=== PATIENT | female | born 1970 | race Caucasian/White ===

== ENCOUNTER 2017-12-08 10:21 | Emergency (ER) | payer OTHER ==
[2017-12-08] MEDS ORDERED: NA CHLORIDE 0.9% 1,000 ML ONE (10:49)
[2017-12-08] MEDS ORDERED: PROMETHAZINE 25 MG/ML VIAL ONE (10:49)
[2017-12-08] MEDS ORDERED: MEPERIDINE HCL 25 MG/0.5 ML ONE (10:49)
[2017-12-08 11:14] LABS: Absolute Lymphocytes (CBC) 2.2 K/uL (0.7-4.9); Absolute Monocytes 0.9 K/uL (0.1-1.3); Absolute Neutrophil 8.2 K/uL (1.8-8.0); Basophils % 0.5 % (0-1.3); Hematocrit 45.3 % (36.0-45.0); MCH 30.9 pg (27.0-35.0); MCV 93.9 fL (80-100); Monocytes % 7.7 % (3.3-12.3); RBC Red Blood Cell Count 4.82 M/uL (3.86-4.86)
[2017-12-08 11:40] LABS: Potassium 3.7 mEq/L (3.6-5.0)
[2017-12-08 11:46] LABS: Albumin 4.8 g/dL (3.2-5.5); Bilirubin Direct 0.4 mg/dL (0-0.2); Bilirubin Total 2.3 mg/dL (0.3-1.2); Protein, Total 8.9 g/dL (6.0-8.3)
--- NOTE | 2017-12-08 13:25 | RAD REPORT ---
EXAM DESCRIPTION: US - Abdomen Exam Limited - 12/08/2017 1:01 pm CLINICAL HISTORY: Abdominal pain, right upper quadrant pain Preliminary findings provided at the time of the study. COMPARISON: Ultrasound May 2014 FINDINGS: Multiple gallstones are present in a partially filled gallbladder. Largest stone is 2.5 cm . No pericholecystic fluid identifiable. Gallbladder wall is normal range. Sonographic Low sign wa s negative ; however, the patient apparently received pain medication. No common duct stone or biliary tree dilatation identified. IMPRESSION: Multi stone cholelithiasis without gallbladder wall thickening or pericholecystic fluid. No biliary tree dilatation.
--- NOTE | 2017-12-08 13:53 | ER ---
Nurse's Notes [facility] Name: Vivek Yo Age: 47 yrs Sex: Female : 1970 Arrival Date: 12/08/2017 Time: 10:24 Bed 16 Private MD: Venu Resendez B Diagnosis: Cholelithiasis Presentation: 12/08 10:32 Presenting complaint: Patient states: " I started having stomach pain around 10:30 last ph night and now it's moved to my chest." Pt reports pain/pressure in upper abdomen and sternal area, denies N/V or SOB. Transition of care: patient was not received from another setting of care. Onset of symptoms was December 08, 2017. Risk Assessment: Do you want to hurt yourself or someone else? Patient reports no desire to harm self or others. Initial Sepsis Screen: Does the patient meet any 2 criteria? No. Patient's initial sepsis screen is negative. Does the patient have a suspected source of infection? No. Patient's initial sepsis screen is negative. Care prior to arrival: None. 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 - Social history:: Smoking status: Patient/guardian denies using tobacco. - Ebola Screening: : No symptoms or risks identified at this time. Screenin:28 Abuse screen: Denies threats or abuse. Denies injuries from another. Nutritional aj screening: No deficits noted. Tuberculosis screening: No symptoms or risk factors identified. Fall Risk None identified. Assessment: 10:41 General: Appears in no apparent distress. uncomfortable, Behavior is calm, cooperative. aj Pain: Complains of pain in epigastric area and right upper quadrant. Neuro: Level of Consciousness is awake, alert, obeys commands, Oriented to person, place, time, situation, Appropriate for age. Cardiovascular: Capillary refill < 3 seconds in bilateral fingers. Respiratory: Airway is patent Respiratory effort is even, unlabored, Respiratory pattern is regular, symmetrical. GI: Abdomen is flat, non-distended, Bowel sounds present X 4 quads. Abd is soft and non tender. Derm: Skin is intact, is healthy with good turgor, Skin is pink, warm \\T\\ dry. normal. 14:28 Reassessment: Patient appears in no apparent distress at this time. No changes from aj previously documented assessment. Patient and/or family updated on plan of care and expected duration. Pain level reassessed. Patient is alert, oriented x 3, equal unlabored respirations, skin warm/dry/pink. Patient denies pain at this time. Patient states feeling better. Patient states symptoms have improved. Vital Signs: 10:34 BP 136 / 86; Pulse 59; Resp 20; Temp 97.7; Pulse Ox 98% on R/A; Weight 58.97 kg; Height ph 5 ft. 6 in. (167.64 cm); Pain 6/10; 12:03 BP 114 / 67; Pulse 52; Resp 16; Pulse Ox 99% on R/A; aj 13:01 BP 108 / 60; Pulse 50; Resp 18; Pulse Ox 99% on R/A; dh3 14:28 BP 105 / 71; Pulse 54; Resp 16; Pulse Ox 99% on R/A; aj 10:34 Body Mass Index 20.98 (58.97 kg, 167.64 cm) ph ED Course: 10:24 Patient arrived in ED. rg4 10:25 Venu Resendez MD is Private Physician. rg4 10:27 [facility] jr8 10:27 Remy Watson MD is Attending Physician. jr8 10:31 Kathryn Teresa, LOR is Primary Nurse. aj 10:34 Triage completed. ph 10:35 Arm band placed on Patient placed in an exam room, on a stretcher. ph 10:43 Inserted saline lock: 22 gauge in left antecubital area, using aseptic technique. aj Missed attempt(s): 20 gauge in left antecubital area. Bleeding controlled, band aid applied, catheter tip intact. 13:00 US Abdomen Limited In Process Unspecified. EDMS 13:03 Ultrasound completed. Note: done portable/bedside. lc3 13:52 Donn Vázquez MD is Referral Physician. jr8 14:28 Patient has correct armband on for positive identification. aj 14:28 No provider procedures requiring assistance completed. IV discontinued, intact, aj bleeding controlled, No redness/swelling at site. Pressure dressing applied. Administered Medications: 11:00 Drug: NS 0.9% 1000 ml Route: IV; Rate: 1000 ml; Site: left antecubital; aj 14:32 Follow up: Response: Pain is decreased; IV Status: Completed infusion; IV Intake: 1000mlaj 11:00 Drug: Phenergan 12.5 mg Route: IVP; Site: left antecubital; aj 14:31 Follow up: Response: Pain is decreased aj 11:00 Drug: Demerol 25 mg Route: IVP; Site: left antecubital; aj 14:31 Follow up: Response: Pain is decreased aj Intake: 14:32 IV: 1000ml; Total: 1000ml. aj Outcome: 13:53 Discharge ordered by MD. swann 14:28 Discharged to home ambulatory, with family. aj 14:28 Condition: good 14:28 Discharge instructions given to patient, family, Instructed on discharge instructions, follow up and referral plans. medication usage, Demonstrated understanding of instructions, follow-up care, medications, Prescriptions given X 1. 14:33 Patient left the ED. aj Signatures: Dispatcher [employer] EDKathryn Rosales RN RN aj Roszak, Josh, PA PA jr8 Hall, Patricia, RN RN Zaina, Marie White 4 Linda Flores 3
--- NOTE | 2017-12-08 13:54 | EDPHYS ---
Physician Documentation [facility] Name: Vivek Yo Age: 47 yrs Sex: Female : 1970 Arrival Date: 12/08/2017 Time: 10:24 Bed 16 Private MD: Venu Resendez B ED Physician Remy Watson HPI: 12/08 11:19 This 47 yrs old Female presents to ER via Wheelchair with complaints of jr8 Abdominal Pain, Chest Pain. 11:19 The patient presents with abdominal pain in the epigastric area. Onset: The jr8 symptoms/episode began/occurred acutely, last night. The symptoms do not radiate. Associated signs and symptoms: Pertinent positives: nausea. The symptoms are described as sharp. Modifying factors: The symptoms are alleviated by nothing, the symptoms are aggravated by food. Severity of pain: At its worst the pain was moderate in the emergency department the pain is unchanged. The patient has experienced similar episodes in the past, a few times. The patient has not recently seen a physician. Patient with history of cholelithiasis. Stated that she will have occasional flare up but usually goes away shortly after. Stated that she had spicy shrimp last night. Pain started last night and has not gone away which is unusual for her. 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 - Social history:: Smoking status: Patient/guardian denies using tobacco. - Ebola Screening: : No symptoms or risks identified at this time. ROS: 11:19 Eyes: Negative for injury, pain, redness, and discharge, ENT: Negative for injury, jr8 pain, and discharge, Neck: Negative for injury, pain, and swelling, Cardiovascular: Negative for chest pain, palpitations, and edema, Respiratory: Negative for shortness of breath, cough, wheezing, and pleuritic chest pain, Back: Negative for injury and pain, MS/Extremity: Negative for injury and deformity, Skin: Negative for injury, rash, and discoloration, Neuro: Negative for headache, weakness, numbness, tingling, and seizure. 11:19 Abdomen/GI: Positive for abdominal pain, nausea, Negative for diarrhea, constipation, abdominal cramps, abdominal distension, anorexia, dysphagia, hematemesis, black/tarry stool, rectal pain, rectal bleeding, bowel incontinence, flatulence. Exam: 11:19 Cardiovascular: Regular rate and rhythm with a normal S1 and S2. No gallops, murmurs, jr8 or rubs. Normal PMI, no JVD. No pulse deficits. Respiratory: Lungs have equal breath sounds bilaterally, clear to auscultation and percussion. No rales, rhonchi or wheezes noted. No increased work of breathing, no retractions or nasal flaring. Back: No spinal tenderness. No costovertebral tenderness. Full range of motion. Skin: Warm, dry with normal turgor. Normal color with no rashes, no lesions, and no evidence of cellulitis. MS/ Extremity: Pulses equal, no cyanosis. Neurovascular intact. Full, normal range of motion. Neuro: Awake and alert, GCS 15, oriented to person, place, time, and situation. Cranial nerves II-XII grossly intact. Motor strength 5/5 in all extremities. Sensory grossly intact. Cerebellar exam normal. Normal gait. 11:19 Abdomen/GI: Inspection: abdomen appears normal, Bowel sounds: active, all quadrants, Palpation: soft, in all quadrants, mild abdominal tenderness, in the epigastric area and right upper quadrant, mass, is not appreciated, rebound tenderness, is not appreciated, voluntary guarding, is not appreciated, involuntary guarding, is not appreciated, no appreciated organomegaly, Indicators: McBurney's point is not tender, Low's sign is negative, Rovsing's sign is negative, Liver: no appreciated palpable abnormalities, tenderness, is not appreciated. Vital Signs: 10:34 BP 136 / 86; Pulse 59; Resp 20; Temp 97.7; Pulse Ox 98% on R/A; Weight 58.97 kg; Height ph 5 ft. 6 in. (167.64 cm); Pain 6/10; 12:03 BP 114 / 67; Pulse 52; Resp 16; Pulse Ox 99% on R/A; aj 13:01 BP 108 / 60; Pulse 50; Resp 18; Pulse Ox 99% on R/A; dh3 14:28 BP 105 / 71; Pulse 54; Resp 16; Pulse Ox 99% on R/A; aj 10:34 Body Mass Index 20.98 (58.97 kg, 167.64 cm) ph MDM: 10:27 Patient medically screened. jr8 13:49 Differential diagnosis: cholecystitis, Cholelithiasis, gastritis, gastroesophageal jr8 reflux disease, Hepatitis, non-specific abd pain, pancreatitis, Peptic Ulcer Disease. Data reviewed: vital signs, nurses notes, lab test result(s), radiologic studies, ultrasound, and as a result, I will discharge patient. Data interpreted: Pulse oximetry: on room air is 99 %. Interpretation: normal. Counseling: I had a detailed discussion with the patient and/or guardian regarding: the historical points, exam findings, and any diagnostic results supporting the discharge/admit diagnosis, lab results, radiology results, the need for outpatient follow up, a general surgeon, to return to the emergency department if symptoms worsen or persist or if there are any questions or concerns that arise at home. Response to treatment: the patient's symptoms have resolved after treatment. ED course: No ductal or biliary tree dilation on US. No fluid or inflammation noted to GBW. Patient stated that she has chronically elevated LFT's. Pain free. No fever. Will send home to f/u with GS. Recommended that she has it taken out . 12/08 10:57 Order name: Basic Metabolic Panel; Complete Time: 12:24 12/08 10:57 Order name: CBC with Diff; Complete Time: 11:22 12/08 10:57 Order name: Creatinine for Radiology; Complete Time: 12:24 12/08 10:57 Order name: Hepatic Function; Complete Time: 12:24 12/08 10:57 Order name: Lipase; Complete Time: 12:24 12/08 10:57 Order name: Troponin (emerg Dept Use Only); Complete Time: 12:24 12/08 10:57 Order name: IV Saline Lock; Complete Time: 11:16 12/08 10:57 Order name: Labs collected and sent; Complete Time: 11:12/08 10:57 Order name: EKG; Complete Time: 10:57 12/08 12:03 Order name: US Abdomen Limited; Complete Time: 13:30 12/08 10:57 Order name: EKG - Nurse/Tech; Complete Time: 11:16 jr8 Administered Medications: 11:00 Drug: NS 0.9% 1000 ml Route: IV; Rate: 1000 ml; Site: left antecubital; aj 14:32 Follow up: Response: Pain is decreased; IV Status: Completed infusion; IV Intake: 1000mlaj 11:00 Drug: Phenergan 12.5 mg Route: IVP; Site: left antecubital; aj 14:31 Follow up: Response: Pain is decreased aj 11:00 Drug: Demerol 25 mg Route: IVP; Site: left antecubital; aj 14:31 Follow up: Response: Pain is decreased aj Disposition: 18:42 Co-signature as Attending Physician, Remy Watson MD I agree with the assessment and kdr plan of care. Disposition: 12/08/17 13:53 Discharged to Home. Impression: Cholelithiasis. - Condition is Stable. - Discharge Instructions: Cholelithiasis. - Prescriptions for omeprazole 20 mg Oral capsule,delayed release(DR/EC) - take 1 capsule by ORAL route once daily; 30 capsule. - Medication Reconciliation Form, Thank You Letter, Antibiotic Education, Prescription Opioid Use form. - Follow up: Donn Vázquez MD; When: 2 - 3 days; Reason: Recheck today's complaints, Continuance of care, Re-evaluation by your physician. - Problem is new. - Symptoms have improved. Signatures: Dispatcher [employer] EDKathryn Rosales RN RN aj Rittger, Kevin, MD MD [facility] Lauro Watts PA PA jr8 Margot Boogie RN RN ph Corrections: (The following items were deleted from the chart) 14:33 13:53 12/08/2017 13:53 Discharged to Home. Impression: Cholelithiasis. Condition is aj Stable. Forms are Medication Reconciliation Form, Thank You Letter, Antibiotic Education, Prescription Opioid Use. Follow up: Donn Vázquez; When: 2 - 3 days; Reason: Recheck today's complaints, Continuance of care, Re-evaluation by your physician. Problem is new. Symptoms have improved. jr8
--- NOTE | 2017-12-09 07:58 | EKG ---
Test Date: 2017-12-08 Test Time: 11:08:19 [place] [place] Worker: HUMPHREY MEASUREMENT RESULTS: Intervals: Rate: 53 NJ: 138 QRSD: 82 QT: 440 QTc: 412 [place]: P: 70 NJ: 138 QRS: 73 T: 58 INTERPRETIVE STATEMENTS: Sinus bradycardia Otherwise normal ECG No previous ECG available for comparison Electronically Signed On 12-09-17 07:55:11 CDT by Abhay Rodríguez
== END 2017-12-08 14:33 | disposition home or self-care (01) ==
LOC: ER 10:21
DX: K80.20 Calculus of gallbladder without cholecystitis without obstruction (principal); E03.9 Hypothyroidism, unspecified
CPT/HCPCS: 36415; 76705; 80048; 80076; 83690; 84484; 85025; 93005; 96361; 96374; 96375; 99284; J2175; J2550; J7030

== ENCOUNTER 2017-12-08 18:08 | Inpatient (IN) | payer OTHER ==
--- NOTE | 2017-12-08 19:21 | RAD REPORT ---
EXAM DESCRIPTION: CT - Abdomen Pelvis W Contrast - 12/08/2017 6:58 pm CLINICAL HISTORY: Abdominal pain/epigastric pain. COMPARISON: December 08, 2017 ultrasound TECHNIQUE: Computed axial tomography of the abdomen pelvis was obtained. 100 cc Isovue-300 was admin istered intravenously. Oral contrast was not requested which limits evaluation of bowel. All CT scans are performed using dose optimization technique as appropriate and may include automated exposure control or mA/KV adjustment according to patient size. FINDINGS: The liver, spleen, pancreas, adrenal and kidneys appear unremarkable. There is no evidence of diverticulitis. A 28 millimeter right ovarian cyst is present. A 25 millimeter left ovarian cyst is seen. No signific ant free fluid is noted. An intrauterine device is in place. Gallstones are present. Gallbladder wall is upper limits normal thickness. The gallbladder is distend ed IMPRESSION: Cholelithiasis with gallbladder distention. 28 millimeter right and 25 millimeter left ovarian cysts without significant free fluid
--- NOTE | 2017-12-08 20:31 | EDPHYS ---
Physician Documentation [facility] Name: Vivek Yo Age: 47 yrs Sex: Female : 1970 Arrival Date: 12/08/2017 Time: 18:09 Bed 28 Private MD: Venu Resendez B ED Physician Remy Watson HPI: 12/08 19:43 This 47 yrs old Female presents to ER via Ambulatory with complaints of jr8 Abdominal Pain, Back Pain. 19:43 Patient seen earlier for suspected gallbladder pain. Came back after pain started up jr8 again. Having pain to epigastric and right upper quadrant again. Now with radiation to back . 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 - Social history:: Smoking status: Patient/guardian denies using tobacco. - Ebola Screening: : No symptoms or risks identified at this time. ROS: 19:43 Eyes: Negative for injury, pain, redness, and discharge, ENT: Negative for injury, jr8 pain, and discharge, Neck: Negative for injury, pain, and swelling, Cardiovascular: Negative for chest pain, palpitations, and edema, Respiratory: Negative for shortness of breath, cough, wheezing, and pleuritic chest pain, Back: Negative for injury and pain, MS/Extremity: Negative for injury and deformity, Skin: Negative for injury, rash, and discoloration, Neuro: Negative for headache, weakness, numbness, tingling, and seizure. 19:43 Abdomen/GI: Positive for abdominal pain, Negative for nausea, vomiting, and diarrhea, abdominal distension, anorexia, dysphagia, hematemesis, black/tarry stool, rectal pain, rectal bleeding, bowel incontinence, flatulence. Exam: 19:43 Cardiovascular: Regular rate and rhythm with a normal S1 and S2. No gallops, murmurs, jr8 or rubs. Normal PMI, no JVD. No pulse deficits. Respiratory: Lungs have equal breath sounds bilaterally, clear to auscultation and percussion. No rales, rhonchi or wheezes noted. No increased work of breathing, no retractions or nasal flaring. Back: No spinal tenderness. No costovertebral tenderness. Full range of motion. Skin: Warm, dry with normal turgor. Normal color with no rashes, no lesions, and no evidence of cellulitis. MS/ Extremity: Pulses equal, no cyanosis. Neurovascular intact. Full, normal range of motion. Neuro: Awake and alert, GCS 15, oriented to person, place, time, and situation. Cranial nerves II-XII grossly intact. Motor strength 5/5 in all extremities. Sensory grossly intact. Cerebellar exam normal. Normal gait. 19:43 Abdomen/GI: Inspection: abdomen appears normal, Bowel sounds: active, all quadrants, Palpation: soft, in all quadrants, mild abdominal tenderness, in the epigastric area and right upper quadrant, mass, is not appreciated, rebound tenderness, is not appreciated, voluntary guarding, is not appreciated, involuntary guarding, is not appreciated, no appreciated organomegaly, Indicators: McBurney's point is not tender, Low's sign is negative, Rovsing's sign is negative, Liver: no appreciated palpable abnormalities, tenderness, is not appreciated. Vital Signs: 18:35 BP 119 / 89; Pulse 59; Resp 16; Temp 98.2; Pulse Ox 100% on R/A; Weight 58.97 kg; ph Height 5 ft. 6 in. (167.64 cm); Pain 3/10; 19:09 BP 99 / 64; Pulse 60; Resp 16 S; Pulse Ox 98% on R/A; Pain 0/10; jd3 20:14 BP 112 / 68; Pulse 61; Resp 17 S; Pulse Ox 100% on R/A; Pain 0/10; jd3 21:24 BP 114 / 79; Pulse 61; Resp 17 S; Pulse Ox 97% on R/A; Pain 4/10; jd3 18:35 Body Mass Index 20.98 (58.97 kg, 167.64 cm) ph MDM: 18:37 Patient medically screened. jr8 20:29 Data reviewed: vital signs, nurses notes, lab test result(s), radiologic studies, CT jr8 scan, ultrasound, and as a result, I will admit patient. Data interpreted: Pulse oximetry: on room air is 100 %. Interpretation: normal. Counseling: I had a detailed discussion with the patient and/or guardian regarding: the historical points, exam findings, and any diagnostic results supporting the discharge/admit diagnosis, lab results, radiology results, the need for further work-up and treatment in the hospital. ED course: Dr. Spivey assessed patient and talked to Dr. Loza. Will put on his service and do surgery tomorrow . 12/08 18:38 Order name: CT Abd/Pelvis - W/Contrast; Complete Time: 19:22 jr8 12/08 18:38 Order name: IV; Complete Time: 18:45 jr8 Administered Medications: 21:09 Drug: Demerol 25 mg Route: IVP; Site: right antecubital; jd3 21:25 Follow up: Response: No adverse reaction; Pain is decreased jd3 21:09 Drug: Phenergan 12.5 mg Route: IVP; Site: right antecubital; jd3 21:25 Follow up: Response: Nausea is decreased jd3 21:09 Drug: Mefoxin 1 grams Route: IVPB; Infused Over: 30 mins; Site: right antecubital; jd3 21:26 Follow up: Response: No adverse reaction; IV Status: Completed infusion jd3 21:10 Drug: Flagyl 500 mg Volume: 100 ml; Route: IVPB; Rate: 200 ml/hr; Infused Over: 30 jd3 mins; Site: right antecubital; 21:40 Follow up: IV Status: Completed infusion iw Disposition: 12/08/17 20:30 Hospitalization ordered by Alvin Loza for Inpatient Admission. Preliminary diagnosis are Cholelithiasis, Intractable abdominal pain . - Bed requested for Telemetry/MedSurg (Inpatient). - Status is Inpatient Admission. tl3 - Condition is Stable. - Problem is new. - Symptoms have improved. UTI on Admission? No Addendum: 12/13/2017 15:26 Co-signature as Attending Physician, Remy Watson MD I agree with the assessment and k dr plan of care. Signatures: Dispatcher [employer] EDMI Sara Sheehan RN RN mw Rittger, Kevin, MD MD [facility] Lauro Watts PA PA jr8 Margot Boogie RN RN Henry Fowler RN RN j Soraya Guerra RN RN tl3 Jacqui Armstrong RN iw Corrections: (The following items were deleted from the chart) 12/08 20:56 20:30 Hospitalization Ordered by Alvin Loza MD for Inpatient Admission. Preliminary mw diagnosis is Cholelithiasis; Intractable abdominal pain . Bed requested for Telemetry/MedSurg (Inpatient). Status is Inpatient Admission. Condition is Stable. Problem is new. Symptoms have improved. UTI on Admission? No. jr8 21:55 20:56 12/08/2017 20:30 Hospitalization Ordered by Alvin Loza MD for Inpatient tl3 Admission. Preliminary diagnosis is Cholelithiasis; Intractable abdominal pain . Bed requested for Telemetry/MedSurg (Inpatient). Status is Inpatient Admission. Condition is Stable. Problem is new. Symptoms have improved. UTI on Admission? No. mw
--- NOTE | 2017-12-08 20:31 | ER ---
Nurse's Notes [facility] Name: Vivek Yo Age: 47 yrs Sex: Female : 1970 Arrival Date: 12/08/2017 Time: 18:09 Bed 28 Private MD: Venu Resendez B Diagnosis: Cholelithiasis;Intractable abdominal pain Presentation: 12/08 18:33 Presenting complaint: Patient states: " I was here earlier and dx w/ gallbladder ph problems. I went home and went to sleep and when I woke up it was really hurting again." Pt reports epigastric pain that radiates to LUQ, denies N/V/D. Transition of care: patient was not received from another setting of care. Onset of symptoms was December 08, 2017. Risk Assessment: Do you want to hurt yourself or someone else? Patient reports no desire to harm self or others. Initial Sepsis Screen: Does the patient meet any 2 criteria? No. Patient's initial sepsis screen is negative. Does the patient have a suspected source of infection? No. Patient's initial sepsis screen is negative. Care prior to arrival: None. 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 - Social history:: Smoking status: Patient/guardian denies using tobacco. - Ebola Screening: : No symptoms or risks identified at this time. Screenin:46 Abuse screen: Denies threats or abuse. Denies injuries from another. Nutritional iw screening: No deficits noted. Tuberculosis screening: No symptoms or risk factors identified. Fall Risk IV access (20 points). Assessment: 18:45 General: Appears in no apparent distress. Behavior is calm, cooperative. Pain: iw Complains of pain in epigastric area, right upper quadrant and left upper quadrant Pain currently is 0 out of 10 on a pain scale. at worst was 5 out of 10 on a pain scale. Neuro: Level of Consciousness is awake, alert, obeys commands, Oriented to person, place, time, situation, Moves all extremities. Full function. Cardiovascular: Patient's skin is warm and dry. Respiratory: Respiratory pattern is regular, symmetrical. GI: Bowel sounds present X 4 quads. Abd is soft X 4 quads Abdomen is tender to palpation in epigastric area Reports upper abdominal pain. : No signs and/or symptoms were reported regarding the genitourinary system. Derm: Skin is pink, warm \\T\\ dry. normal. Musculoskeletal: Range of motion: intact in all extremities. 19:07 Reassessment: Patient appears in no apparent distress at this time. No changes from jd3 previously documented assessment. Patient and/or family updated on plan of care and expected duration. Pain level reassessed. Patient is alert, oriented x 3, equal unlabored respirations, skin warm/dry/pink. Patient denies pain at this time. General: Appears in no apparent distress. Behavior is calm, cooperative. Pain: Denies pain. Neuro: Level of Consciousness is awake, alert, obeys commands, Oriented to person, place, time, situation, Moves all extremities. Full function. GI: Abdomen is flat, Patient currently denies abdominal pain. 20:15 Reassessment: Patient appears in no apparent distress at this time. No changes from jd3 previously documented assessment. Patient and/or family updated on plan of care and expected duration. Pain level reassessed. Patient is alert, oriented x 3, equal unlabored respirations, skin warm/dry/pink. 21:24 Reassessment: Patient appears in no apparent distress at this time. Patient and/or [facility] family updated on plan of care and expected duration. Pain level reassessed. Patient is alert, oriented x 3, equal unlabored respirations, skin warm/dry/pink. awaiting admission orders for admission. Vital Signs: 18:35 BP 119 / 89; Pulse 59; Resp 16; Temp 98.2; Pulse Ox 100% on R/A; Weight 58.97 kg; ph Height 5 ft. 6 in. (167.64 cm); Pain 3/10; 19:09 BP 99 / 64; Pulse 60; Resp 16 S; Pulse Ox 98% on R/A; Pain 0/10; jd3 20:14 BP 112 / 68; Pulse 61; Resp 17 S; Pulse Ox 100% on R/A; Pain 0/10; jd3 21:24 BP 114 / 79; Pulse 61; Resp 17 S; Pulse Ox 97% on R/A; Pain 4/10; jd3 18:35 Body Mass Index 20.98 (58.97 kg, 167.64 cm) ph ED Course: 18:09 Patient arrived in ED. mr 18:09 Venu Resendez MD is Private Physician. mr 18:35 Triage completed. ph 18:36 Arm band placed on. ph 18:37 Lauro Watts PA is PHCP. jr8 18:37 Remy Watson MD is Attending Physician. jr8 18:39 Jacqui Armstrong, RN is Primary Nurse. iw 18:[address] via wheelchair. vm2 18:44 Inserted saline lock: 20 gauge in right antecubital area, using aseptic technique. iw 18:53 CT completed. Patient tolerated procedure well. Patient moved back from CT. mw3 18:58 CT Abd/Pelvis - W/Contrast In Process Unspecified. EDMS 19:07 Primary Nurse role handed off by Jacqui Armstrong, LOR jd3 19:07 Henry Fowler RN is Primary Nurse. jd3 19:09 Patient has correct armband on for positive identification. Bed in low position. Call j light in reach. Side rails up X 1. Adult w/ patient. 20:30 Alvin Loza MD is Hospitalizing Provider. jr8 21:24 No provider procedures requiring assistance completed. Patient admitted, IV remains in jd3 place. Administered Medications: 21:09 Drug: Demerol 25 mg Route: IVP; Site: right antecubital; jd3 21:25 Follow up: Response: No adverse reaction; Pain is decreased jd3 21:09 Drug: Phenergan 12.5 mg Route: IVP; Site: right antecubital; jd3 21:25 Follow up: Response: Nausea is decreased jd3 21:09 Drug: Mefoxin 1 grams Route: IVPB; Infused Over: 30 mins; Site: right antecubital; jd3 21:26 Follow up: Response: No adverse reaction; IV Status: Completed infusion jd3 21:10 Drug: Flagyl 500 mg Volume: 100 ml; Route: IVPB; Rate: 200 ml/hr; Infused Over: 30 jd3 mins; Site: right antecubital; 21:40 Follow up: IV Status: Completed infusion iw Outcome: 20:30 Decision to Hospitalize by Provider. jrCésar 21:54 Admitted to Tele accompanied by tech, via stretcher, with chart, Report called to [email or web address] LOR Judd 21:54 Condition: stable 21:54 Instructed on the need for admit. 21:55 Patient left the ED. tl3 Signatures: Dispatcher [employer] EDDelia Arnold Irene, RN RN Lauro Watts PA PA jr8 Margot Boogie RN RN Mica Keen [facility] Henry Fowler RN RN jSoraya Walter RN RN tl3 Diamond Ramirez 3
[2017-12-08] MEDS ORDERED: CEFOXITIN/SWI 1gm 1 GM/10 ML SYR ONE (20:55)
[2017-12-08] MEDS ORDERED: MEPERIDINE HCL 25 MG/0.5 ML ONE (20:55)
[2017-12-08] MEDS ORDERED: PROMETHAZINE 25 MG/ML VIAL ONE (20:55)
[2017-12-08] MEDS ORDERED: METRONIDAZOLE 500mg IVPB 500 MG/100 ML BAG IV ONE (20:56)
[2017-12-08] MEDS ORDERED: MEPERIDINE HCL 25 MG/0.5 ML IV PRN (22:05)
[2017-12-08] MEDS ORDERED: ACETAMINOPHEN 500 MG TAB PO PRN (22:05)
[2017-12-08] MEDS ORDERED: ONDANSETRON 4 MG/2 ML VIAL IV PRN (22:05)
[2017-12-08] MEDS ORDERED: NA CHLORIDE 0.9% 1,000 ML ONE (22:11)
[2017-12-08] MEDS: NA CHLORIDE 0.9% 1,000 ML IV SCH (22:18)
[2017-12-09] MEDS ORDERED: CEFOXITIN SODIUM 1 GM/VIAL IVPB SCH (03:00)
[2017-12-09] MEDS: METRONIDAZOLE 500mg IVPB 500 MG/100 ML BAG IV SCH ×2 (03:07→05:38)
[2017-12-09] MEDS ORDERED: CEFOXITIN/NS 1gm 1 GM/50 ML BAG IV SCH (03:17)
[2017-12-09] MEDS ORDERED: CEFOXITIN SODIUM 2 GM/VIAL ONE (04:15)
[2017-12-09] MEDS ORDERED: NA CHLORIDE 0.9% 100 ML ONE (04:18)
[2017-12-09 05:59] LABS: Absolute Lymphocytes (CBC) 0.8 K/uL (0.7-4.9); Absolute Monocytes 0.6 K/uL (0.1-1.3); Absolute Neutrophil 7.1 K/uL (1.8-8.0); Basophils % 2.7 % (0-1.3); Eosinophils % 2.5 % (0-4.4); Hematocrit 37.7 % (36.0-45.0); Lymphocytes % 8.5 % (15.3-44.8); MCH 31.6 pg (27.0-35.0); MCV 94.2 fL (80-100); MPV 9.6 fL (7.6-11.3); Monocytes % 6.3 % (3.3-12.3)
[2017-12-09 06:30] LABS: Albumin 3.3 g/dL (3.2-5.5); Bilirubin Direct 0.8 mg/dL (0-0.2); Bilirubin Total 2.9 mg/dL (0.3-1.2); Potassium 3.9 mEq/L (3.6-5.0); Protein, Total 6.3 g/dL (6.0-8.3)
[2017-12-09] MEDS ORDERED: BUPIVACAINE 0.5% Inj,MDV 50 mL VIAL ONE (07:29)
[2017-12-09 07:30] LABS: Blood Morphology Comment NOT SEEN (NOT SEEN); Platelet Estimate ADEQ
[2017-12-09 07:51] LABS: Specific Gravity 1.015 (1.005-1.030)
[2017-12-09] MEDS ORDERED: FENTANYL CITR 100 MCG/2 ML ONE ×2 (07:56→08:41)
[2017-12-09] MEDS ORDERED: ROCURONIUM 50 MG/5 ML VIAL IV ONE (07:57)
[2017-12-09] MEDS ORDERED: PROPOFOL 200 MG/20 ML VIAL IV ONE (07:57)
[2017-12-09] MEDS ORDERED: LIDOCAINE 2% MPF 5 ML VIAL ONE (07:58)
[2017-12-09] MEDS: NA CHLORIDE 0.9% 1,000 ML IV SCH ×2 (08:05→18:05)
--- NOTE | 2017-12-09 08:18 | P.HP ---
Date of Service: 12/09/17 PC:A this 47-year-old female presented to emergency room with severe right upper quadrant abdominal pain for diagnosis and treatment. HPC: Patient is similar episodes of this in the past. Was told she needed her gallbladder removed. She had not yet made arrangements. PMH: Negative PSHx: negative SOC: no known allergies SYS REVIEW: No cough, wheeze, or shortness of breath. No chest pain or palpitations. No urinary complaints. She is a runner and has good exercise tolerance O/E awake alert mildly uncomfortable HEENT: not jaundiced Chest: Chest movement equal bilaterally ABD: mild right upper quadrant tenderness LOCO: intact DATA: as documented cholecystitis cholelithiasis IMPRESSION: Cholecystitis and cholelithiasis PLAN: O2 to the operating room for laparoscopic possible open cholecystectomy with intraoperative cholangiogram. The risks of this procedure have been discussed. The possibility, infection, injury to bowel those blood vessels and intestines has been described. The possible need for open and/or further surgeries and procedures was discussed. She understands and wants to proceed.
[2017-12-09] MEDS ORDERED: KETOROLAC 30 MG/ML INJ ONE (08:20)
[2017-12-09] MEDS ORDERED: DEXAMETHASONE 10 MG/ML VIAL ONE (08:20)
[2017-12-09] MEDS ORDERED: Ringers Lactate 1,000 ML IV ONE (08:38)
[2017-12-09] MEDS ORDERED: ONDANSETRON HCL 40 MG/20 ML VIAL ONE (08:41)
[2017-12-09] MEDS ORDERED: GLYCOPYRROLATE 0.2 MG/ML SYR ONE (08:49)
[2017-12-09] MEDS ORDERED: NEOSTIGMINE 1 MG/ML -5 ML SYRINGE ONE (08:50)
--- NOTE | 2017-12-09 09:40 | P.OP ---
Preoperative diagnosis: Acute cholecystitis with cholelithiasis Postoperative diagnosis: The same Primary procedure: Laparoscopic cholecystectomy Secondary procedure: intraoperative cholangiogram Other procedure(s): Disimpaction of stone from the cystic duct remnant Anesthesia: general Estimated blood loss: Less than 10 cc Specimen: 1 gallbladder and contents Operative Technique: On the patient brought to the operative room and placed supine on the table. After the induction of adequate general endotracheal anesthesia, the area of the abdomen was prepped with a DuraPrep solution, and she was draped in the usual aseptic manner. A subumbilical incision was made. This is brought down through the skin and subcutaneous tissue. The Visiport was used to enter the peritoneal cavity and created pneumoperitoneum to approximately 12 mm of mercury. Under direct vision , a 5 mm trocar was placed in the upper midline, and 2 5s on the right lateral side. With the patient placed in reverse Trendelenburg and rolled to the left malleolar visualize the right upper quadrant. Could see a markedly distended and chronically inflamed gallbladder. A grasper was placed on the fundus of the gallbladder. Another 1 was placed down by Mikhail's pouch. Gentle dissection was begun to expose the cystic duct and artery. Having obtained a critical view. A clip was placed across cystic artery which was divided. A clip was placed between the gallbladder and the cystic duct. An opening was made into the cystic duct which we obtained a normal intraoperative cholangiogram. Just distal to where we had inserted the catheter we could see that there were 2 stones that were wedged into the cystic duct. The cystic duct was cut in a longitudinal manner to allow us to milk the stones out of the cystic duct remnant. They were markedly impacted into the duct and we were finally able to dislodge them very a clip was placed to secure the cystic duct. The cystic duct had been fully transected and a Surgi tie of chromic was used to secure the duct as well. the gallbladder was then dissected free from the liver bed, placed into an Endo-Catch and we started to take it out through the umbilical trocar site. Due to that of stones and the size of the gallbladder it was necessary to open the umbilical trocar site in an inferior direction. The gallbladder was removed. We turned our attention back to the umbilical trocar site. This was reapproximated using 3 stitches other purulent material placed using the Endo Close. The abdomen was now inspected to ensure adequate hemostasis. Irrigating fluid was aspirated from the peritoneal cavity. The anterior abdominal wall was LIANET blocked using 0.25% Marcaine. At this point the pneumoperitoneum was collapsed, those trocars removed, the sutures tied. Flor were then applied to the skin At the end of the procedure she was in a stable condition and sent to the recovery room. Needle sponge instrument count were correct. No drains were placed. Complications: None (All)
[2017-12-09] MEDS ORDERED: ONDANSETRON 4 MG/2 ML VIAL IV PRN (09:43)
[2017-12-09] MEDS ORDERED: MORPHINE 4 MG/ML SYR IV PRN (09:43)
[2017-12-09] MEDS ORDERED: HYDROCODONE/APAP 7.5/325 MG TAB PO PRN (09:43)
--- NOTE | 2017-12-09 09:53 | RAD REPORT ---
EXAM DESCRIPTION: RAD - Cholangiogram Oper-Xray Or - 12/09/2017 9:39 am CLINICAL HISTORY: Cholecystectomy COMPARISON: None. FINDINGS: Cystic duct injection is noted, performed by operating surgeon. There is no evidence of a retained common bile duct stone. IMPRESSION: No evidence of retained common bile duct stone.
[2017-12-09] MEDS ORDERED: CEFOXITIN/SWI 1gm 1 GM/10 ML SYR IV SCH (12:00)
[2017-12-10] MEDS: NA CHLORIDE 0.9% 1,000 ML IV SCH (04:17)
== END 2017-12-10 12:59 | disposition home or self-care (01) | DRG 419 ==
LOC: ER 18:08 → ERHOLD 20:42 → 4TH 21:46
PROVIDERS: ADMIT Surgery; ATTEND Surgery
PROC: 0FT44ZZ Resection of Gallbladder, Percutaneous Endoscopic Approach (ICD-10-PCS; principal; 2017-12-08)
PROC: BF00YZZ Plain Radiography of Bile Ducts using Other Contrast (ICD-10-PCS; 2017-12-08)
PROC: 0FC84ZZ Extirpation of Matter from Cystic Duct, Percutaneous Endoscopic Approach (ICD-10-PCS; 2017-12-08)
DX: K80.00 Calculus of gallbladder with acute cholecystitis without obstruction (principal)
CPT/HCPCS: 36415; 74177; 74300; 76705; 80048; 80076; 81025; 82962; 83690; 84484; 85025; 88304; 93005; 96361; 96365; 96374; 96375; 99284; 99285; J0694; J1100; J2175; J2405; J2550; J2710; J3010; J7030; Q9967

== ENCOUNTER 2019-05-09 14:01 | Emergency (ER) | payer OTHER ==
[2019-05-09] MEDS ORDERED: MORPHINE 4 MG/ML SYR ONE (14:36)
[2019-05-09] MEDS ORDERED: ONDANSETRON 4 MG/2 ML VIAL ONE (14:36)
[2019-05-09] MEDS ORDERED: NA CHLORIDE 0.9% 1,000 ML ONE (14:36)
[2019-05-09 14:38] LABS: Absolute Lymphocytes (CBC) 1.6 K/uL (0.7-4.9); Basophils % 0.6 % (0-1.3); Hematocrit 41.2 % (36.0-45.0); Lymphocytes % 26.8 % (15.3-44.8); MPV 9.3 fL (7.6-11.3); RBC Red Blood Cell Count 4.45 M/uL (3.86-4.86)
[2019-05-09 14:59] LABS: Albumin 4.1 g/dL (3.4-5.0); Bilirubin Direct 0.5 mg/dL (0-0.2); Bilirubin Total 1.4 mg/dL (0.2-1.0); Potassium 3.3 mmol/L (3.5-5.1); Protein, Total 8.1 g/dL (6.4-8.2)
[2019-05-09 15:34] LABS: Urine Blood 1+ (NEG); Urine Glucose NEGATIVE (NEG); Urine Protein NEGATIVE (NEG); Urine pH 7.5 (5.0-7.0)
--- NOTE | 2019-05-09 15:50 | RAD REPORT ---
EXAM DESCRIPTION: CT - Abdomen Pelvis W Contrast - 05/09/2019 3:27 pm CLINICAL HISTORY: Abdominal pain/left upper quadrant pain COMPARISON: 2018 TECHNIQUE: Computed axial tomography of the abdomen pelvis was obtained. 100 cc Isovue-300 was admin istered intravenously. Oral contrast was not requested which limits evaluation of bowel. All CT scans are performed using dose optimization technique as appropriate and may include automated exposure control or mA/KV adjustment according to patient size. FINDINGS: Cholecystectomy. Mild dilatation of the intrahepatic biliary tree and common hepatic duct. Spleen, pancreas, adrenal and kidneys appear unremarkable. There is no evidence of diverticulitis. IUD within the uterus. 3.9 centimeter right ovarian cyst without significant free fluid IMPRESSION: Mild dilatation of the biliary tree. This may be physiologic in this patient status post cholecystectomy. Pathology such as a stricture or stone within the duct can also result in this appe arance. This should be correlated clinically and with appropriate lab values. 3.9 centimeter right ovarian cyst without significant free-fluid likely benign. Follow up ultrasound in a couple months recommended to assess stability/resolution
--- NOTE | 2019-05-09 16:46 | ER ---
Nurse's Notes [facility] Name: Vivek Yo Age: 48 yrs Sex: Female : 1970 Arrival Date: 05/09/2019 Time: 14:05 Bed 30 Private MD: Diagnosis: Unspecified abdominal pain Presentation: 05/09 14:06 Presenting complaint: Patient states: LUQ pain started after eating and now the pain is sv diffuse on the abdomen. c/o diarrhea. Transition of care: patient was not received from another setting of care. Onset of symptoms was May 09, 2019. Risk Assessment: Do you want to hurt yourself or someone else? Patient reports no desire to harm self or others. Care prior to arrival: Medication(s) given: took med at school that the cramping has improved. 14:06 Method Of Arrival: Ambulatory sv 14:06 Acuity: VÍCTOR 3 sv 14:20 Initial Sepsis Screen: Does the patient meet any 2 criteria? No. Patient's initial tr5 sepsis screen is negative. Does the patient have a suspected source of infection? No. Patient's initial sepsis screen is negative. Triage Assessment: 14:06 General: Appears in no apparent distress. uncomfortable, slender, Behavior is calm, sv cooperative, appropriate for age. Pain: Complains of pain in abdomen. Neuro: Level of Consciousness is awake, alert, obeys commands, Gait is steady. Respiratory: Respiratory effort is even, unlabored. GI: Reports lower abdominal pain, upper abdominal pain, cramping. Historical: - Allergies: 14:08 No Known Allergies; sv - PMHx: 14:08 Hypothyroidism; sv - PSHx: 14:09 Cholecystectomy; sv - Immunization history:: Adult Immunizations up to date. - Social history:: Smoking status: Patient/guardian denies using tobacco, never smoked. - Ebola Screening: : No symptoms or risks identified at this time. Screenin:20 Abuse screen: Denies threats or abuse. Nutritional screening: No deficits noted. tr5 Tuberculosis screening: No symptoms or risk factors identified. Fall Risk None identified. Assessment: 14:20 General: Appears uncomfortable, Behavior is calm, cooperative, appropriate for age. tr5 Pain: Complains of pain in umbilical area and left upper quadrant. Neuro: Level of Consciousness is awake, alert, obeys commands, Oriented to person, place, time, situation, Typesetting Machine Tender are equal bilaterally Moves all extremities. Cardiovascular: Heart tones present Capillary refill < 3 seconds Pulses are all present. Edema is absent. Respiratory: Airway is patent Respiratory effort is even, unlabored, Respiratory pattern is regular, symmetrical. GI: Bowel sounds present X 4 quads. Abd is soft Reports upper abdominal pain, cramping. : No signs and/or symptoms were reported regarding the genitourinary system. EENT: No signs and/or symptoms were reported regarding the EENT system. Derm: No signs and/or symptoms reported regarding the dermatologic system. Musculoskeletal: No signs and/or symptoms reported regarding the musculoskeletal system. 15:30 Reassessment: Patient appears in no apparent distress at this time. Patient and/or tr5 family updated on plan of care and expected duration. Pain level reassessed. Patient is alert, oriented x 3, equal unlabored respirations, skin warm/dry/pink. Vital Signs: 14:08 BP 147 / 73; Pulse 63; Resp 20; Temp 97.7(O); Pulse Ox 100% ; Weight 58.97 kg; Height 5 sv ft. 6 in. (167.64 cm); 14:25 BP 120 / 80 LA (auto/reg); Pulse 69; Temp 97.9(O); Pulse Ox 100% on R/A; Pain 3/10; jp3 15:30 BP 131 / 73; Pulse 69; Resp 16; Pulse Ox 100% on R/A; tr5 14:08 Body Mass Index 20.98 (58.97 kg, 167.64 cm) sv ED Course: 14:05 Patient arrived in ED. as 14:08 Triage completed. sv 14:09 Arm band placed on. sv 14:10 Edward Berman, LOR is Primary Nurse. tr5 14:15 Kelechi Patel PA is PHCP. [facility] 14:15 Remy Watson MD is Attending Physician. jmm 14:25 Placed in gown. Bed in low position. Call light in reach. Side rails up X 1. Warm jp3 blanket given. Verbal reassurance given. Pulse ox on. NIBP on. 14:26 Patient maintains SpO2 saturation greater than 95% on room air. jp3 14:30 Initial lab(s) drawn, by me, sent to lab. Inserted saline lock: 22 gauge in right tr5 antecubital area, using aseptic technique. 15:54 CT Abd/Pelvis - IV Contrast Only In Process Unspecified. EDMS 16:44 Prosper Mendoza MD is Referral Physician. [facility] 16:59 No provider procedures requiring assistance completed. IV discontinued. tr5 Administered Medications: 14:41 Drug: NS 0.9% 1000 ml Route: IV; Rate: 1 bolus; Site: right antecubital; tr5 17:01 Follow up: IV Status: Completed infusion; IV Intake: 1000ml tr5 17:01 Not Given (Patient Refused): morphine 4 mg IVP once; RASS on ADMIN: Combtv4, Very tr5 Agttd3, Agttd2, Rstlss1, AlertClm0, Drwsy-1, Lt Sdtn-2, Mod Sdtn-3, Dp Sdtn-4, UnArsble-5 17:01 Not Given (Patient Refused): Zofran 4 mg IVP once; over 2 minutes tr5 Intake: 17:01 IV: 1000ml; Total: 1000ml. tr5 Outcome: 16:44 Discharge ordered by . [facility] 16:59 Discharged to home ambulatory. tr5 16:59 Condition: stable 16:59 Discharge instructions given to patient, family, Instructed on discharge instructions, follow up and referral plans. medication usage, Demonstrated understanding of instructions, follow-up care, medications, Prescriptions given X 3. 17:03 Patient left the ED. tr5 Signatures: Dispatcher [employer] Stephanie Williamson, RN RN Kelechi Fajardo PA PA jmm Martinez, Amelia as Pisarski, Jacob 3 Edward Berman, LOR RN tr5 Corrections: (The following items were deleted from the chart) 14:09 14:08 PSHx: None; sv sv 14:42 14:30 Inserted saline lock: 22 gauge in left antecubital area, using aseptic technique. tr5 tr5
--- NOTE | 2019-05-09 16:48 | EDPHYS ---
Physician Documentation [facility] Name: Vivek Yo Age: 48 yrs Sex: Female : 1970 Arrival Date: 05/09/2019 Time: 14:05 Bed 30 Private MD: ED Physician Remy Watson HPI: 05/09 14:38 This 48 yrs old Female presents to ER via Ambulatory with complaints of [facility] Abdominal Pain. 14:38 The patient presents with abdominal pain. Onset: The symptoms/episode began/occurred jm acutely, at 13:00. The symptoms radiate to the left flank, abdomen. This is a 48 year old female with a history of hypothyroidism that presents to the ED with complaints of left sided abdominal pain which began around 130 pm. Patient states having bloating and gas. Patient took IBS medication with no relief. Denies vomiting. . Historical: - Allergies: 14:08 No Known Allergies; sv - PMHx: 14:08 Hypothyroidism; sv - PSHx: 14:09 Cholecystectomy; sv - Immunization history:: Adult Immunizations up to date. - Social history:: Smoking status: Patient/guardian denies using tobacco, never smoked. - Ebola Screening: : No symptoms or risks identified at this time. ROS: 14:38 Constitutional: Negative for fever, chills, and weight loss, Cardiovascular: Negative jmm for chest pain, palpitations, and edema, Respiratory: Negative for shortness of breath, cough, wheezing, and pleuritic chest pain. 14:38 Abdomen/GI: Positive for abdominal pain, diarrhea. 14:38 Back: Positive for flank pain. 14:38 All other systems are negative. Exam: 14:38 Constitutional: This is a well developed, well nourished patient who is awake, alert, jmm and in no acute distress. Head/Face: atraumatic. Eyes: EOMI, no conjunctival erythema appreciated ENT: Moist Mucus Membranes Neck: Trachea midline, Supple Chest/axilla: Normal chest wall appearance and motion. Cardiovascular: Regular rate and rhythm. No edema appreciated Respiratory: Normal respirations, no respiratory distress appreciated 14:38 Abdomen/GI: Inspection: abdomen appears normal, Bowel sounds: normal, Palpation: abdomen is soft and non-tender, in all quadrants. 14:38 Back: ROM is normal. 14:38 Musculoskeletal/extremity: ROM: intact in all extremities. 14:38 Skin: Appearance: Color: normal in color. 14:38 Neuro: Orientation: is normal, Mentation: is normal, Memory: is normal. 14:38 Psych: Behavior/mood is pleasant, cooperative. Vital Signs: 14:08 BP 147 / 73; Pulse 63; Resp 20; Temp 97.7(O); Pulse Ox 100% ; Weight 58.97 kg; Height 5 sv ft. 6 in. (167.64 cm); 14:25 BP 120 / 80 LA (auto/reg); Pulse 69; Temp 97.9(O); Pulse Ox 100% on R/A; Pain 3/10; jp3 15:30 BP 131 / 73; Pulse 69; Resp 16; Pulse Ox 100% on R/A; tr5 14:08 Body Mass Index 20.98 (58.97 kg, 167.64 cm) sv MDM: 14:28 Patient medically screened. [facility] 16:41 Data reviewed: vital signs, nurses notes. Counseling: I had a detailed discussion with trace the patient and/or guardian regarding: the historical points, exam findings, and any diagnostic results supporting the discharge/admit diagnosis, lab results, radiology results, the need for outpatient follow up, to return to the emergency department if symptoms worsen or persist or if there are any questions or concerns that arise at home. ED course: Patient is alert and non toxic in appearance. Patient states bili is chronically elevated. Patient is advised to follow up with GI for further evaluation and elevation of transaminases. Patient has no right sided pain. Patient is given strict return precautions. Patient understood and agrees with the plan of care. . 05/09 14:16 Order name: Basic Metabolic Panel; Complete Time: 15:02 [facility] 05/09 14:16 Order name: CBC with Diff; Complete Time: 14:49 [facility] 05/09 14:16 Order name: Creatinine for Radiology; Complete Time: 15:02 [facility] 05/09 14:16 Order name: Hepatic Function; Complete Time: 15:02 [facility] 05/09 14:16 Order name: Lipase; Complete Time: 15:02 [facility] 05/09 14:57 Order name: Urine Dipstick--Ancillary (enter results) 05/09 14:16 Order name: IV Saline Lock; Complete Time: 14:33 [facility] 05/09 14:16 Order name: Labs collected and sent; Complete Time: 14:33 [facility] 05/09 14:16 Order name: Urine Dipstick-Ancillary (obtain specimen); Complete Time: 14:53 [facility] 05/09 14:38 Order name: CT Abd/Pelvis - IV Contrast Only; Complete Time: 16:14 [facility] 05/09 14:57 Order name: Urine --Ancillary (enter results) 05/09 14:17 Order name: Urine Test (obtain specimen); Complete Time: 14:53 [facility] Administered Medications: 14:41 Drug: NS 0.9% 1000 ml Route: IV; Rate: 1 bolus; Site: right antecubital; tr5 17:01 Follow up: IV Status: Completed infusion; IV Intake: 1000ml tr5 17:01 Not Given (Patient Refused): morphine 4 mg IVP once; RASS on ADMIN: Combtv4, Very tr5 Agttd3, Agttd2, Rstlss1, AlertClm0, Drwsy-1, Lt Sdtn-2, Mod Sdtn-3, Dp Sdtn-4, UnArsble-5 17:01 Not Given (Patient Refused): Zofran 4 mg IVP once; over 2 minutes tr5 Disposition: 05/10 07:30 Co-signature as Attending Physician, Remy Watson MD I agree with the assessment and kdr plan of care. Disposition: 05/09/19 16:44 Discharged to Home. Impression: Unspecified abdominal pain. - Condition is Stable. - Discharge Instructions: Abdominal Pain, Adult. - Prescriptions for Zofran ODT 4 mg Oral tablet,disintegrating - place 1 tablet by TRANSLINGUAL route every 4-6 hours; 20 tablet. Bentyl 20 mg Oral Tablet - take 1 tablet by ORAL route every 6 hours As needed; 20 tablet. Tylenol- Codeine #3 300-30 mg Oral Tablet - take 1 tablet by ORAL route every 6 hours As needed; 12 tablet. - Medication Reconciliation Form, Thank You Letter, Antibiotic Education, Prescription Opioid Use form. - Follow up: Prosper Mendoza MD; When: 2 - 3 days; Reason: Recheck today's complaints, Continuance of care, Re-evaluation by your physician. Signatures: Dispatcher [employer] Stephanie Williamson RN RN sv Remy Watson MD MD kdr Mickail, Joel, PA PA jmm Rodriguez, Tommie, RN RN tr5 Corrections: (The following items were deleted from the chart) 05/09 14:09 14:08 PSHx: None; sv 17:03 16:44 05/09/2019 16:44 Discharged to Home. Impression: Unspecified abdominal pain. tr5 Condition is Stable. Forms are Medication Reconciliation Form, Thank You Letter, Antibiotic Education, Prescription Opioid Use. Follow up: Prosper Mendoza; When: 2 - 3 days; Reason: Recheck today's complaints, Continuance of care, Re-evaluation by your physician. david
[2019-05-09 18:39] VITALS: O2SAT 100
[2019-05-09 18:40] VITALS: TEMP 97.9
[2019-05-09 18:42] VITALS: BP 131/73
== END 2019-05-09 17:03 | disposition home or self-care (01) ==
LOC: ER 14:01
DX: R10.9 Unspecified abdominal pain (principal); E03.9 Hypothyroidism, unspecified
CPT/HCPCS: 96361; 85025; 80048; 36415; 81025; 80076; 81003; 83690; 74177; 96360; 99284; Q9967; J7030; J2405